=== PATIENT | male | born 1965 | race Caucasian/White ===

== ENCOUNTER 2018-01-07 18:27 | Inpatient (IN) | payer BC, SELFPAY ==
[~2018-01-07 18:27] MED LIST: ISOVUE-370 76%-LOCM 1 ML ONE
[2018-01-07] MEDS ORDERED: Diltiazem 125 MG/25 ML ONE (18:31)
[2018-01-07 18:49] LABS: #Basophils 0.2 thou/uL (0.0-0.2); #Eosinphils 0.1 thou/uL (0.0-0.7); #Lymphocytes 1.9 thou/uL (1.20-3.40); #Monocytes 0.6 thou/uL (0.11-0.59); #Neutrophils 8.2 thou/uL (1.40-6.50); %Basophils 1.4 % (0.0-1.0); %Eosinophils 0.9 % (0.0-10.0); %Lymphocytes 17.6 % (21.0-51.0); %Monocytes 5.2 % (0.0-10.0); Hemoglobin 17.5 g/dL (14.0-18.0); Mean Corpuscular HGB CONC 35.1 g/dL (32.0-36.0); Mean Corpuscular Hemoglobin 29.7 pg (27.0-31.0); Mean Corpuscular Volume 84.7 fL (78.0-98.0); Mean Platelet Volume 8.7 fL (7.4-10.4); Platelet Count 229 thou/uL (130-400); Red Blood Cell (RBC) Count 5.89 mill/uL (4.70-6.10); White Blood Cell (WBC) Count 10.9 thou/uL (4.8-10.8)
[2018-01-07] MEDS ORDERED: Acetaminophen 500 MG TAB ONE (19:05)
[2018-01-07 19:08] LABS: ALT (SGPT) 45 U/L (8-55); AST (SGOT) 24 U/L (5-34); Albumin 4.4 g/dL (3.5-5.0); Alkaline Phosphatase 83 U/L (40-150); Anion Gap 16 mmol/L (10-20); BUN (Urea Nitrogen) 50 mg/dL (8.4-25.7); Bilirubin, Total 1.3 mg/dL (0.2-1.2); CK (CPK) 46 U/L (30-200); Calc. Creatinine Clearance 0 mL/min (70-130); Carbon Dioxide 22 mmol/L (22-29); Chloride 102 mmol/L (98-107); Estimated GFR-MDRD 58; Globulin 3.1 g/dL (2.4-3.5); Glucose 199 mg/dL (70-105); Lipase 20 U/L (8-78); Potassium 3.3 mmol/L (3.5-5.1); Protein, Total 7.5 g/dL (6.0-8.3); Sodium 137 mmol/L (136-145)
[2018-01-07 19:11] LABS: CKMB 2.5 ng/mL (0-6.6); Troponin I 0.032 ng/mL (< 0.028)
[2018-01-07 19:12] LABS: Digoxin Less than 0.15 ng/mL (0.8-2.0)
--- NOTE | 2018-01-07 19:32 | RAD ---
SUPINE PORTABLE CHEST ONE VIEW: HISTORY: A 52-year-old male with a history of chest pain. COMPARISON: None. FINDINGS: Postop midline sternotomy. Heart size is upper range of normal. Inspiration is somewhat less than o ptimal. No confluent pneumonia, overt edema, or pleural effusion. IMPRESSION: No acute intrathoracic disease. Borderline heart size. POS: RRE
--- NOTE | 2018-01-07 19:37 | CT ---
CHEST CT ANGIOGRAM WITH 3D RENDERING: ABDOMEN CT ANGIOGRAM WITH 3D RENDERING: HISTORY: A 52-year-old male with a history of generalized weakness, diaphoresis, and shortness of breath. FINDINGS: There is a somewhat mosaic appearance to the lungs bilaterally. There is evidence for some bilateral vascular congestion. No evidence for thoracic aortic aneurysm or dissection. Splenomegaly. No evidence for abdominal aortic aneurysm or dissection. Some fatty changes in the pa ncreas. IMPRESSION: 1. No evidence for thoracic or abdominal aortic aneurysm or dissection. 2. Splenomegaly. 3. Mosaic appearance to the appearance of the chest, which is nonspecific, with some bilateral vascu lar congestion. POS: RRE
[2018-01-07] MEDS ORDERED: Enoxaparin Sodium 40 MG/0.4 ML SYRINGE ONE (20:00)
[2018-01-07] MEDS ORDERED: Enoxaparin Sodium 80 MG/0.8 ML SYRINGE ONE (20:00)
[2018-01-07 20:44] LABS: Bilirubin Negative (Negative); Blood, Urine Negative (Negative); Clarity CLEAR (Clear); Glucose, Urine (Dipstick) Negative (Negative); Leukocyte Trace (Negative); Nitrite Negative (Negative); Protein, Urine (Dipstick) Negative (Neg-Trace); Specific Gravity, Urine 1.029 (1.002-1.036); Urobilinogen 0.2 mg/dL (0.2-1.0); pH, Urine 5.5 (5.0-9.0)
[2018-01-07 20:46] LABS: Bacteria/HPF None Seen HPF (None Seen); Hyaline Casts/LPF 7-10 HYALINE CAST LPF (0-3 Hyaline); RBC/HPF None Seen HPF (0-3); Squamous Epithelial None Seen HPF (0-3); WBC/HPF 0-3 HPF (0-3)
[2018-01-07] MEDS ORDERED: Potassium Chloride 20 MEQ in Premix Bag 1 BAG IVPB SCH (21:00)
[2018-01-07] MEDS ORDERED: ALPRAZolam 0.25 MG TAB PO PRN (21:50)
[2018-01-07] MEDS ORDERED: Aspirin 300 MG Suppository PR SCH (22:00)
[2018-01-07] MEDS ORDERED: Ondansetron HCl/PF 4 MG/2 ML Vial IVP PRN (22:19)
[2018-01-07] MEDS ORDERED: Acetaminophen 325 MG TAB PO PRN (22:19)
[2018-01-07] MEDS ORDERED: Ondansetron ODT 4 MG TAB SL PRN (22:19)
[2018-01-07] MEDS: Sodium Chloride 0.9% 1,000 ML IV SCH (22:51)
[2018-01-07 22:54] VITALS: BMI 40.2
--- NOTE | 2018-01-08 02:17 | HP ---
DATE OF ADMISSION: 01/07/2018 HISTORY OF PRESENT ILLNESS: This is a 52-year-old white male, who presents with chest pain and new o nset atrial fibrillation. The patient has been on a weight loss competition for the past several mon s with this office. The last day is tomorrow. He has lost 25 pounds on this keto diet. The perez money is $1500. Weighing is tomorrow. Therefore, for the past 3 days, he basically has been on a s tarvation diet in order to win this competition. He was doing relatively well today. At the end of his workday, he was beginning to feel somewhat weak. He did his final weigh, and therefore, he went to [employer] and had a 3 piecemeal, and immediately afterwards, he became very weak, dizzy, and he was a bout to lose his vision. He states his eyes were going black. He also forgot his medications and he has been on no blood pressure medicines for the past 3 days. He also had some salmon recently, shahzad banks has flared his gout in his right knee. Incidentally, because he forgot his blood pressure medicine s, he went to the emergency room in [place], [place], to refill his blood pressure medicines; however, he has been off of his medicines recently. PAST MEDICAL HISTORY: Hypertension, hyperlipidemia, erectile dysfunction, and gout. PAST SURGICAL HISTORY: Past surgeries include right rotator cuff repair in 2008, umbilical hernia re pair 02/2001, colonoscopy 01/2017. SOCIAL HISTORY: Patient is a nonsmoker. Drinks occasional alcohol. He is a truckdriver gracia y. He does not smoke. He is . MEDICATIONS: Include fish oil 1000 daily, Pravastatin 40 daily, losartan/HCTZ 100/25 daily, metoprol ol 100 at bedtime, and aspirin 81 daily. ALLERGIES: None. REVIEW OF SYSTEMS: As above. PHYSICAL EXAMINATION: VITAL SIGNS: Afebrile, blood pressure 124/57, pulse 89, respirations 25, pulse ox 98. GENERAL: No acute distress at this time. Chest pain free. HEENT: Clear. NECK: Supple. HEART: Regular rate and rhythm with a 1/6 systolic ejection murmur. LUNGS: Clear. ABDOMEN: Soft, morbidly obese. EXTREMITIES: With no edema. LABORATORY DATA: Sodium 137, potassium 3.3, chloride 102, creatinine 1.29, BUN is 50, glucose 199, A ST 24, ALT 45, alkaline phosphatase 83. Troponin 1 0.032. TSH 0.8952. White count 10.9, H and H 17 and 49. Urine with specific gravity 1.029. CT chest negative. Chest x-ray, borderline heart size. ASSESSMENT: 1. New onset atrial fibrillation. 2. Severe keto diet/starvation diet. 3. Severe dehydration with elevated BUN and creatinine ratio as well as hemoconcentration. 4. Gout flare, right knee. 5. Hypertension. 6. Hyperlipidemia. 7. Erectile dysfunction. PLAN: 1. Hydrate. 2. Discuss patient's extreme diet. Informed to no longer attempt this diet. 3. Replace potassium. 4. Echocardiogram. 5. Lovenox 1 mg/kg b.i.d. 6. Aspirin 325 daily. 7. Coreg 3.125 b.i.d., 8. Recheck CBC and BMP in the a.m. and resume other blood pressure medicines. 9. This was discussed with Cardiology to notify him of his admission. However, we will consult Card iology in the a.m.
[2018-01-08 05:47] LABS: #Eosinphils 0.1 thou/uL (0.0-0.7); #Monocytes 0.8 thou/uL (0.11-0.59); #Neutrophils 6.7 thou/uL (1.40-6.50); %Basophils 0.3 % (0.0-1.0); %Eosinophils 1.2 % (0.0-10.0); %Lymphocytes 21.1 % (21.0-51.0); %Monocytes 8.1 % (0.0-10.0); %Neutrophils 69.3 % (42.0-75.0); Hemoglobin 15.7 g/dL (14.0-18.0); Mean Corpuscular HGB CONC 33.8 g/dL (32.0-36.0); Mean Corpuscular Hemoglobin 29.3 pg (27.0-31.0); Mean Corpuscular Volume 86.7 fL (78.0-98.0); Platelet Count 204 thou/uL (130-400); RBC Distribution Width 13.1 % (11.5-14.5); Red Blood Cell (RBC) Count 5.35 mill/uL (4.70-6.10); White Blood Cell (WBC) Count 9.7 thou/uL (4.8-10.8)
[2018-01-08 05:57] LABS: Anion Gap 12 mmol/L (10-20); BUN (Urea Nitrogen) 34 mg/dL (8.4-25.7); Calc. Creatinine Clearance 181 mL/min (70-130); Calcium 9.2 mg/dL (7.8-10.44); Carbon Dioxide 23 mmol/L (22-29); Chloride 107 mmol/L (98-107); Estimated GFR-MDRD Greater than 90; Glucose 104 mg/dL (70-105); Potassium 3.9 mmol/L (3.5-5.1); Sodium 138 mmol/L (136-145)
[2018-01-08] MEDS: Potassium Chloride 20 MEQ TAB PO SCH ×2 (08:00→17:00)
--- NOTE | 2018-01-08 08:01 | PRG ---
DATE OF SERVICE: 01/08/2018. SUBJECTIVE: The patient slept well last night with his CPAP. No complaints of any chest pain or dis comfort like as before. Remains in normal sinus rhythm with sinus bradycardia. OBJECTIVE: VITAL SIGNS: Temperature 97.6, pulse 46, respirations 18, pulse ox 97, blood pressure 117/56. HEART: Bradycardic. LUNGS: Clear. ABDOMEN: Morbidly obese. EXTREMITIES: With no edema. LABORATORY DATA: White count is 9.7, H&H is 15 and 46, platelet of 204. Sodium 138, potassium 3.9, BUN down from 50-34, creatinine down from 1.29-78, blood sugar 104. ASSESSMENT: 1. New onset atrial fibrillation cardioverted to a normal sinus rhythm. 2. Severe keto/starvation diet in a weight loss competition. 3. Severe dehydration with elevated BUN and creatinine ratio improved from yesterday. 4. Morbid obesity. A. Risk factor. 5. Right knee gout flare, stable. 6. Hypertension. 7. Hyperlipidemia. 8. Erectile dysfunction. PLAN: 1. Dr. Rutledge to see today. 2. The patient remains in normal sinus rhythm this morning. The potassium levels have returned to n ormal. 3. Continue Lovenox. 4. Need to reevaluate the beta gabriela due to the patient's sinus bradycardia.
[2018-01-08] MEDS ORDERED: Carvedilol 3.125 MG TAB PO SCH (09:00)
[2018-01-08] MEDS ORDERED: Enoxaparin Sodium 120 MG/0.8 ML SYRINGE SC SCH (09:00)
[2018-01-08] MEDS: Sodium Chloride 0.9% 1,000 ML IV SCH (11:12)
--- NOTE | 2018-01-08 14:04 | CON ---
DATE OF CONSULTATION: 01/08/2018 REASON FOR CONSULTATION: Atrial fibrillation. PRIMARY CARE PROVIDER: Dr. Ian Duenas HISTORY OF PRESENT ILLNESS: Mr. Iverson is a very pleasant 52-year-old gentleman who recently present ed with atrial fibrillation and rapid ventricular response. He has undergone a diet contest. He has had a recent significant weight loss. He recently became dizzy with near syncope. He had associate d shortness of breath and tachycardia. He presented to the emergency room with atrial fibrillation w ith RVR. He was cardioverted while in the emergency room. He continues to be in sinus rhythm and fe els well. His LVEF does appear normal on recent echo. PAST MEDICAL HISTORY: Hypertension, obstructive sleep apnea, shoulder surgery, hernia repair, recent colonoscopy. ALLERGIES: None. HOME MEDICATIONS: Losartan/hydrochlorothiazide, aspirin, pravastatin, metoprolol. SOCIAL HISTORY: No tobacco or alcohol use. REVIEW OF SYSTEMS: Ten point review of systems reviewed, as above, otherwise negative. PHYSICAL EXAMINATION: VITAL SIGNS: Blood pressure 123/64, pulse 48, temperature 98.1. GENERAL: Patient is a pleasant male who is in no acute distress. The patient appears his stated age. NEUROLOGIC: The patient is alert and oriented times 3 with no focal neurologic deficits. HEENT: Sclerae without icterus. Mouth has moist mucous membranes with normal pallor. NECK: No JVD. Carotid upstroke brisk. No bruits bilaterally. LUNGS: Clear to auscultation with unlabored respirations. BACK: No scoliosis or kyphosis. CARDIAC: Regular rate and rhythm with normal S1 and S2. No S3 or S4 noted. No significant rubs, mur murs, thrills, or gallops noted throughout the precordium. PMI is not displaced. There is no parast ernal heave. ABDOMEN: Soft, nontender, nondistended. No peritoneal signs present. No hepatosplenomegaly. No abn ormal striae. EXTREMITIES: 2+ femoral and 2+ dorsalis pedis pulses. No cyanosis, clubbing, or edema. SKIN: No gross abnormalities. PERTINENT LABS: Hemoglobin 15.7, creatinine 0.78. Peak troponin 0.032. EKG normal sinus rhythm, right bundle branch block. IMPRESSION: 1. Atrial fibrillation, now sinus rhythm. 2. Hypertension. RECOMMENDATIONS: Mr. Iverson's CHADS-VASc score is 1. I discussed risks and benefits of anticoagulat ion therapy. At this point, would recommend anticoagulation therapy for at least a month given recen t cardioversion. Will add Eliquis at 5 mg p.o. b.i.d. Would also continue low dose beta gabriela the rapy. His overall LVEF does appear normal. It would be okay from my standpoint to discharge home wi th close outpatient followup.
[2018-01-08 18:23] VITALS: BP 142/72; TEMP 97.8
[2018-01-08] MEDS ORDERED: Apixaban 5 MG TAB PO SCH (21:00)
[2018-01-08] MEDS ORDERED: Atorvastatin Calcium 10 MG TAB PO SCH (21:00)
== END 2018-01-08 18:30 | disposition home or self-care (01) | DRG 309 ==
LOC: ERS 18:27 → 2NO 20:45
PROVIDERS: ADMIT Family Medicine; ATTEND Family Medicine
PROC: 5A09357 Assistance with Respiratory Ventilation, Less than 24 Consecutive Hours, Continuous Positive Airway Pressure (ICD-10-PCS; principal; 2018-01-07)
DX: I48.91 Unspecified atrial fibrillation (principal); Z68.41 Body mass index [BMI] 40.0-44.9, adult; E86.0 Dehydration; M10.9 Gout, unspecified; I10 Essential (primary) hypertension; E78.5 Hyperlipidemia, unspecified; N52.9 Male erectile dysfunction, unspecified; E66.01 Morbid (severe) obesity due to excess calories; I95.9 Hypotension, unspecified; G47.33 Obstructive sleep apnea (adult) (pediatric); Z72.4 Inappropriate diet and eating habits
CPT/HCPCS: 36415; 71045; 71275; 80048; 80053; 80162; 81003; 81015; 82550; 82553; 83690; 83735; 84443; 84484; 85025; 93005; 93306; 94760; 96360; 96361; 96372; 96374; 96375; 99152; J0282; J1650; J3480